=== PATIENT | female | born 1940 | race Caucasian/White ===

== ENCOUNTER → 2019-11-30 | Outpatient (CLI) | payer MEDICARE, BC ==
[~2019-11-30] MED LIST: BACTRIM DS TAB1 EACH PO; LEXAPRO10 MG PO; METOPROLOL SUCC25 MG PO; RANITIDINE HCL300 MG PO; SPIRONOLACTONE25 MG PO; VERAPAMIL ER120 MG PO
[2019-11-30 13:53] LABS: CREATININE, SERUM 1.65 mg/dL (0.57-1.11)
--- NOTE | 2019-11-30 15:56 | Diagnostic Imaging Report ---
History: Benign neoplasm of a pulmonary images Comparison studies: None Technique: Sagittal T2; axial DWI, FLAIR, MPGR, T1, Coronal FLAIR. Intravenous contrast: None Findings: Scalp: Right occipital craniotomy changes . No masses . Bone marrow: Normal in signal intensity. Extra-axial: Extra-axial mixed in signal intensity mass abutting the right lateral cerebellum, sigmoid sinus and inferior tentorium measuring 1.3 x 1.7 x 1.6 cm (SI-[id number]), without significant mass effect over the adjacent parenchyma. Brain sulci: Moderately prominent. Ventricles: Moderately prominent . No hydrocephalus . Parenchyma: Hazy T2/FLAIR hyperintensities of the periventricular and deep white matter. Gliotic focus at the right parietal periventricular white matter No masses, hemorrhage, acute or chronic vascular insults. Suprasellar region: No abnormalities. Craniocervical junction: No abnormalities. Patent foramen magnum. No Chiari one malformation. Vessels: Normal flow-voids in the arteries and sinuses. IMPRESSION: 1. No acute abnormalities. 2. Mild chronic microvascular ischemic changes of the white matter. 3. Moderate diffuse volume loss. 4. Right occipital craniotomy changes with underlying residual 1.7 cm extra-axial mass, most consistent with meningioma Signed by: DR Lasha Cooper M.D. on 11/30/2019 3:53 PM
== END ==
LOC: MRI 12:52
PROVIDERS: ATTEND Neurological Surgery
DX: Z12.31 Encounter for screening mammogram for malignant neoplasm of breast (principal); D32.0 Benign neoplasm of cerebral meninges
CPT/HCPCS: 36415; 70551; 77067; 82565; 84520